=== PATIENT | female | born 1955 | race Caucasian/White ===

== ENCOUNTER 2016-06-18 13:56 | Outpatient (CLI) ==
--- NOTE | 2016-06-21 08:18 | MAMMO ---
EXAM: Bilateral digital screening mammogram History: Screening Comparison: Bilateral mammogram 06/17/2015 Findings: MLO and CC views of bilateral breasts demonstrate scattered fibroglandular breast parench yma. Stable benign bilateral vascular calcifications. There are no dominant masses, no suspicious m icrocalcifications and no architectural distortions Impression: Benign stable mammogram. Recommend followup routine screening mammography in 1 year. BIRADS 2
== END 2016-06-18 13:57 | disposition home or self-care (01) ==
LOC: RAD 13:56
PROVIDERS: ATTEND Family Medicine
DX: C50.112 Malignant neoplasm of central portion of left female breast (principal)

== ENCOUNTER 2016-12-10 08:15 | Outpatient (CLI) ==
--- NOTE | 2016-12-10 09:18 | US ---
EXAM: Ultrasound abdomen limited. HISTORY: Right upper quadrant pain. COMPARISON: None available. TECHNIQUE: Abdominal, real time with image documentation: limited (eg, single organ, quadrant, foll ow-up) FINDINGS: The liver demonstrates increased parenchymal echogenicity without intrahepatic biliary dil atation. Portal venous flow is normal in direction. The gallbladder is without shadowing stones, wa ll thickening or pericholecystic fluid. Common duct measures approximately 0.6 cm. Visualized porti ons of the pancreas are unremarkable. IMPRESSION: Fatty infiltration of the liver.
== END 2016-12-10 08:16 | disposition home or self-care (01) ==
LOC: RAD 08:15
PROVIDERS: ATTEND Family Medicine
DX: R10.11 Right upper quadrant pain (principal)

== ENCOUNTER 2016-12-13 07:28 | Outpatient (CLI) ==
--- NOTE | 2016-12-13 10:34 | NM ---
EXAM: Hepatobiliary scan HISTORY: Abdominal pain. COMPARISON: None of this type. Ultrasound 12/10/2016. PROCEDURE: The patient was injected with 5.1 mCi of 99mTc mebrofenin intravenously. Images of the ab domen were obtained at 5 min intervals for 30 minutes. Additional images were obtained at 45 minutes and 1 hour. The patient was then given 8 ounces of BOOST after which images of the gallbladder were obtained to assess gallbladder contraction. FINDINGS: Sequential images demonstrate normal uptake of tracer into the liver. Activity is seen in the intrahepatic biliary ducts at about 15 minutes. The activity appears in the gallbladder at about 15 minutes. Subsequent images demonstrate increasing activity in the gallbladder. Activity first a ppears in the small bowel at 20 minutes. The gallbladder ejection fraction is 35% . IMPRESSION: 1.Normal hepatobiliary scan. 2.The gallbladder ejection fraction is 35% (borderline normal).
== END 2016-12-13 07:29 | disposition home or self-care (01) ==
LOC: RAD 07:28
PROVIDERS: ATTEND Family Medicine
DX: R10.11 Right upper quadrant pain (principal)

== ENCOUNTER 2017-06-17 08:33 | Outpatient (CLI) ==
--- NOTE | 2017-06-17 09:35 | CT ---
EXAM: CT sinuses/facial bones without contrast HISTORY: The sinusitis COMPARISON: None TECHNIQUE: Serial axial images of the facial bones/sinuses were obtained without IV contrast. These were viewed in coronal, sagittal and axial planes. FINDINGS: There is mucosal thickening of the left maxillary sinus. The right maxillary sinus is kasi ar. Paranasal sinuses are clear. The sphenoid sinuses are clear. The frontal sinuses are not prese nt. The mastoid air cells are clear. Ostiomeatal units are patent. The nasal turbinates are normal . The nasal septum is normal. The soft tissues are unremarkable. IMPRESSION: 1. Mild paranasal sinus disease of the left maxillary sinus. 2. The ostiomeatal units are patent bilaterally. 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 4. Nasal septum is normal and approximately midline.
--- NOTE | 2017-06-17 11:49 | MAMMO ---
EXAM: Digital screening mammogram with tomosynthesis HISTORY: Screening COMPARISON: 06/18/2016 FINDINGS: Digital MLO and CC views of the right and left breast were performed. Tomosynthesis was pe rformed. Computer aided detection utilized. The breast tissue is heterogeneously dense, which could obscure small masses. Benign bilateral calcifications. There is no evidence for mass, asymmetry, dist ortion, or suspicious calcifications in either breast. IMPRESSION: 1. No evidence of malignancy in the right or left breast. 2. Annual screening mammogram is recommended in one year. BIRADS category 2, benign
== END 2017-06-17 08:34 | disposition home or self-care (01) ==
LOC: RAD 08:33
PROVIDERS: ATTEND Family Medicine
DX: J01.81 Other acute recurrent sinusitis (principal); Z12.31 Encounter for screening mammogram for malignant neoplasm of breast
CPT/HCPCS: 77067

== ENCOUNTER 2018-06-20 10:12 | Outpatient (CLI) ==
--- NOTE | 2018-06-21 11:28 | MAMMO ---
EXAM: Digital screening mammogram with tomosynthesis HISTORY: Screening COMPARISON: 06/17/2017 FINDINGS: Digital MLO and CC views of the right and left breast were performed. Tomosynthesis was performed. Computer aided detection utilized. The breast tissue is heterogeneously dense, which c ould obscure small masses. Benign bilateral calcifications. There is no evidence for mass, asymmetr y, distortion, or suspicious calcifications in either breast. IMPRESSION: 1. No evidence of malignancy in the right or left breast. 2. Annual screening mammogram is recommended in one year. BIRADS category 2, benign
== END 2018-06-20 10:13 | disposition home or self-care (01) ==
LOC: RAD 10:12
PROVIDERS: ATTEND Family Medicine
DX: Z12.31 Encounter for screening mammogram for malignant neoplasm of breast (principal)